=== PATIENT | female | born 1970 | race Two or more races ===

== ENCOUNTER 2018-05-09 11:34 | Day surgery (SDC) | payer BC, MEDICAID ==
[2018-05-09] MEDS ORDERED: PROPOFOL 60 ML (12:36)
[2018-05-09] MEDS ORDERED: LIDOCAINE 2% (SDV) 5 ML INJ (12:37)
[2018-05-09] MEDS ORDERED: FENTAnyl 50 MCG/ML VIAL IV (13:00)
[2018-05-09] MEDS ORDERED: EPHEDrine SULFATE 50 MG/5 ML SYG IV (13:00)
[2018-05-09] MEDS ORDERED: ONDANSETRON 4 MG INJ IV (13:00)
[2018-05-09] MEDS ORDERED: LABETALOL HCL 20MG INJ IV (13:00)
[2018-05-09] MEDS ORDERED: hydrALAzine 20 MG INJ IV (13:00)
== END 2018-05-09 16:24 | disposition home or self-care (01) ==
LOC: GIL 11:34
DX: K63.5 Polyp of colon (principal); K64.8 Other hemorrhoids
CPT/HCPCS: 45380; 84703; 88305